=== PATIENT | female | born 1985 | race Caucasian/White ===

== ENCOUNTER → 2020-06-28 15:26 | Outpatient (BNVA) | payer SELFPAY | PROVIDERS: Family Provider Nurse Practitioner; PCP Nurse Practitioner; Visit Provider Nurse Practitioner Family | DX: J11.1 Influenza due to unidentified influenza virus with other respiratory manifestations (principal); R68.89 Other general symptoms and signs | CPT/HCPCS: 87071; 87400; 87635; 87880 ==